=== PATIENT | female | born 1995 | race Caucasian/White ===

== ENCOUNTER 2017-06-12 12:09 | Outpatient (CLI) | payer OTHER ==
--- NOTE | 2017-06-12 17:54 | XRAY Report ---
TWO VIEW LUMBAR SPINE: 06/12/2017 CLINICAL INDICATION: Back pain. Frontal and lateral views of the lumbar spine demonstrate normal height and alignment of the vertebra l bodies. The disk spaces are preserved. There is no evidence of fracture or subluxation. The tor l gas pattern is normal. IMPRESSION: NORMAL LUMBAR SPINE. JOB #: [id number] EXT JOB #:[id number]
--- NOTE | 2017-06-12 17:56 | XRAY Report ---
FRONTAL PELVIS: 06/12/2017 CLINICAL INDICATION: Hip pain. Frontal view of the hips and pelvis demonstrate no evidence of fracture or dislocation. The joint sp aces are preserved. An IUD is noted in the pelvis. IMPRESSION: NORMAL HIPS AND PELVIS. JOB #: [id number] EXT JOB #:[id number]
== END 2017-06-12 12:10 | disposition home or self-care (01) ==
LOC: DI 12:09
PROVIDERS: ATTEND Internal Medicine Rheumatology
DX: M54.9 Dorsalgia, unspecified (principal); M25.559 Pain in unspecified hip; Z97.5 Presence of (intrauterine) contraceptive device
CPT/HCPCS: 72100; 72170

== ENCOUNTER 2017-08-08 16:29 | Emergency (ER) | payer OTHER ==
[2017-08-08 16:56] LABS: BILIRUBIN,URINE NEGATIVE (NEGATIVE); PH,URINE 7.5 PH (5.0-7.5)
[2017-08-08 16:57] LABS: HCG UR QUAL POSITIVE; UA CHARGE (STRIP ONLY) YES; UR CULTURE IF IND NOT INDICATED
--- NOTE | 2017-08-08 18:06 | Ultrasound Report ---
EXAM: FIRST TRIMESTER OBSTETRIC ULTRASOUND (Less than 11 weeks) EXAM DATE: 08/08/2017 05:40 PM. CLINICAL HISTORY: UPT, , IUD. LMP: 06/25/2017. COMPARISONS: None. TECHNIQUE: Transabdominal and transvaginal ultrasound examination with static image documentation. CLINICAL DATES: EGA 6 weeks 2 days with CHARLENE 04/01/2018 based on LMP. ASSESSMENT: Gestational Sac: Single intrauterine. Mean gestational sac diameter: 14.8 mm = 16 weeks 2 days. Embryo: CRL (crown-rump length) 4.2 mm = 16 weeks 2 days. Cardiac activity: 124 beats per minute. Yolk sac: 4.7 mm. Amniotic fluid: Not accurately assessed at this gestational age. Early placenta: Not visible at this gestational age. Other: Small yesi-gestational fluid collection measuring 1.0 x 0.4 mm. MATERNAL STRUCTURES: Uterus: Retroverted. Unremarkable. Cervix: Closed. IUD in the endocervical canal. Right Ovary/Adnexa: Unremarkable. The ovary measures 3.1 x 2.0 x 2.2 cm, volume 7.1 cc. Left Ovary/Adnexa: Unremarkable. The ovary measures 2.5 x 1.7 x 1.8 cm, volume 4.0 cc. Free Fluid: None. Other: None. IMPRESSION: 1. Single viable intrauterine at EGA 6 weeks 2 days with CHARLENE 04/01/2018 based on crown-rump length, which is concordant with clinical dates. 2. Assigned dating is CHARLENE 04/01/2018 based on LMP. 3. IUD in endocervical canal. [facility] Referring Provider Line: [phone] SITE ID: [id number]
[2017-08-08 18:21] LABS: BASOPHILS # (AUTO) 0.1 10^3/uL (0.0-0.1); BASOPHILS % (AUTO) 0.7 %; EOSINOPHILS # (AUTO) 0.1 10^3/uL (0.0-0.7); EOSINOPHILS % (AUTO) 1.1 %; HCT - HEMATOCRIT 37.8 % (37.0-47.0); HGB - HEMOGLOBIN 12.6 g/dL (12.0-16.0); LYMPHOCYTES # (AUTO) 1.8 10^3/uL (1.5-3.5); LYMPHOCYTES % (AUTO) 21.6 %; MEAN CORPUSCULAR HEMOGLOBIN 26.1 pg (27.0-31.0); MEAN CORPUSCULAR HGB CONC 33.2 g/dL (32.0-36.0); MEAN CORPUSCULAR VOLUME 78.6 fL (81.0-99.0); MEAN PLATELET VOLUME 7.8 fL (7.9-10.8); MONOCYTES # (AUTO) 0.8 10^3/uL (0.0-1.0); MONOCYTES % (AUTO) 9.2 %; NEUTROPHILS # (AUTO) 5.6 10^3/uL (1.5-6.6); NEUTROPHILS % (AUTO) 67.4 %; RED BLOOD COUNT 4.81 10^6/uL (4.20-5.40); RED CELL DISTRIBUTION WIDTH 12.7 % (12.0-15.0); UNCORRECTED WHITE BLOOD COUNT 8.4 x10^3/uL; WHITE BLOOD COUNT 8.4 x10^3/uL (4.8-10.8)
--- NOTE | 2017-08-08 18:24 | ED Physician Documentation ---
PD HPI ABD PAIN - Stated complaint Stated Complaint: IUD REMOVAL - Chief complaint Chief Complaint: Abd Pain - History obtained from History obtained from: Patient - History of Present Illness Timing - onset: Other (This is a G0 now G1 who does not desire . She has an IUD in place. She has had 2 positive pregnancies and [facility] an appointment [facility] but was referred here for IUD removal prior to that appointment.) Review of Systems Constitutional: reports: Reviewed and negative Throat: reports: Reviewed and negative Cardiac: reports: Reviewed and negative Respiratory: reports: Reviewed and negative PD PAST MEDICAL HISTORY - Past Medical History Past Medical History: Yes Cardiovascular: None Respiratory: None Neuro: None Endocrine/Autoimmune: None - Past Surgical History Past Surgical History: No - Present Medications Home Medications: Ambulatory Orders Medication Instructions Recorded Confirmed Nortriptyline [Pamelor] 08/08/17 Zolpidem Tartrate [Ambien Cr] 08/08/17 - Allergies Allergies/Adverse Reactions: Allergies Allergy/AdvReac Type Severity Reaction Status Date / Time No Known Drug Allergies Allergy Verified 10/09/16 07:10 - Social History Does the pt smoke?: No Smoking Status: Never smoker Does the pt drink ETOH?: No Does the pt have substance abuse?: No - Immunizations Immunizations are current?: Yes - POLST Patient has POLST: No PD ED PE NORMAL - Vitals Vital signs reviewed: Yes - General General: Alert and oriented X 3, No acute distress - Abdomen Abdomen: Normal bowel sounds, Soft, Non tender - Female Female : Salt Refiner present (Roberta TAPIA), Other (IUD removed, no visible abnormalities) - Neuro Neuro: Alert and oriented X 3, Normal speech - Psych Psych: Normal mood, Normal affect Results - Vitals Vitals: Vital Signs - 24 hr 08/08/17 16:32 Temperature 36.7 C Heart Rate 87 Respiratory 20 Rate Blood Pressure 116/75 O2 Saturation 96 Oxygen O2 Source Room air - Labs Labs: Laboratory Tests 08/08/17 08/08/17 08/08/17 16:47 17:58 17:58 WBC 8.4 RBC 4.81 Hgb 12.6 Hct 37.8 MCV 78.6 L MCH 26.1 L MCHC 33.2 RDW 12.7 Plt Count 256 MPV 7.8 L Neut # 5.6 Lymph # 1.8 [place] # 0.8 Eos # 0.1 Baso # 0.1 Absolute Nucleated RBC 0.00 Nucleated RBC % 0.0 Sodium 136 Potassium 3.7 Chloride 102 Carbon Dioxide 24 Anion Gap 10.0 BUN 7 Creatinine 0.6 Estimated GFR (MDRD) 126 Glucose 100 Calcium 9.6 Total Bilirubin 0.8 AST 16 ALT 14 Alkaline Phosphatase 48 Total Protein 7.3 Albumin 4.6 Globulin 2.7 Albumin/Globulin Ratio 1.7 Lipase 34 Urine Color YELLOW Urine Clarity CLEAR Urine pH 7.5 Ur Specific [place] 1.010 Urine Protein NEGATIVE Urine Glucose (UA) NEGATIVE Urine Ketones 40 H Urine Occult Blood NEGATIVE Urine Nitrite NEGATIVE Urine Bilirubin NEGATIVE Urine Urobilinogen 1 (NORMAL) Ur Leukocyte Esterase NEGATIVE Ur Microscopic Review NOT INDICATED Urine Culture Comments NOT INDICATED Urine HCG, Qual POSITIVE - Rads (name of study) Pelvic ultrasound Radiology: EMP read contemporaneously (Single viable IUP, 6w2d, IUD in place) PD MEDICAL DECISION MAKING - ED course ED course: She presents with an unwanted in the setting of an IUD in place. She wants the IUD removed and this course of action was confirmed with OB and it was removed without issue during examination. [facility]. - Consults Consults: Consulted (name) (Dr Chester, OB please take IUD out) Departure - Departure Disposition: 01 Home, Self Care Clinical Impression: Qualifiers: Weeks of gestation: less than 8 weeks Qualified Code(s): Z3A.01 - Less than 8 weeks gestation of Condition: Good Record reviewed to determine appropriate education?: Yes Instructions: ED Preg Established Normal Sxs
[2017-08-08 18:31] LABS: ALBUMIN/GLOBULIN RATIO 1.7 (1.0-2.2); BILIRUBIN,TOTAL 0.8 mg/dL (0.2-1.0); CALCIUM 9.6 mg/dL (8.5-10.3); CREATININE 0.6 mg/dL (0.4-1.0); POTASSIUM 3.7 mmol/L (3.5-5.0); TOTAL PROTEIN 7.3 g/dL (6.7-8.2)
[2017-08-08 19:02] VITALS: BP 135/50
== END 2017-08-08 19:03 | disposition home or self-care (01) ==
LOC: ED 16:29
DX: Z30.432 Encounter for removal of intrauterine contraceptive device (principal); Z34.01 Encounter for supervision of normal first pregnancy, first trimester; Z3A.01 Less than 8 weeks gestation of pregnancy
CPT/HCPCS: 36415; 76801; 80053; 81001; 81003; 81025; 83690; 84702; 85025; 86900; 86901; 87086; 99283